=== PATIENT | female | born 1955 | race Caucasian/White ===

== ENCOUNTER 2018-03-19 19:14 | Inpatient (IN) ==
[2018-03-19 20:06] LABS: Basophils % 0.4 % (0.0-0.8); Eosinophils # 0.2 10*3/uL (0.0-0.87); Eosinophils % 2.2 % (0.00-10.9); Hemoglobin 13.5 GM/DL (12.0-16.0); Immature Granulocytes % 0.6 %; Immature Granulocytes Absolute 0.06 #; Lymphocytes # 3.1 10*3/uL (1.4-4.0); Lymphocytes % 32.1 % (21.3-54.2); Mean Corpuscular HGB Conc 32.1 GM/DL (32-36); Mean Corpuscular Hemoglobin 28 PG (27-34); Mean Corpuscular Volume 88.1 FL (87-102); Mean Platelet Volume 8.9 FL (9.6-12.0); Monocytes # 0.7 10*3/uL (0.11-0.8); Monocytes % 6.6 % (1.7-12.7); Neutrophils # 5.7 10*3/uL (1.4-7.4); Neutrophils % 58.1 % (38.7-73.9); Platelet Count 399 T/CUMM (130-400); Red Blood Count 4.77 MC/CUMM (3.8-5.5); Red Cell Distribution Width 16.6 % (9.3-17.3); White Blood Count 9.8 T/CUMM (4-12)
[2018-03-19] MEDS ORDERED: ALBUTEROL/IPRATROPIUM 3 ML NEB RESP TX STA (20:26)
[2018-03-19] MEDS ORDERED: PANTOPRAZOLE 40 MG VIAL IV STA (20:26)
[2018-03-19] MEDS ORDERED: methylPREDNISolone SOD SUC 125 MG/2 ML VIAL IV STA (20:26)
[2018-03-19 20:30] LABS: Alanine Aminotransferase 20 U/L (13-56); Albumin 3.8 G/DL (3.4-5.0); Alkaline Phosphatase 90 U/L (45-117); Aspartate Amino Transferase 11 U/L (0-37); Bilirubin,Total < 0.39 MG/DL (0.2-1.0); Blood Urea Nitrogen 14 MG/DL (7-18); Calcium 8.1 MG/DL (8.5-10.1); Glucose 97 MG/DL (74-106); Osmolality,Calculated 290.6 MOS/KG (273-304); Potassium 4.1 MMOL/L (3.5-5.1); Sodium 146 MMOL/L (136-145); Total Protein 7.4 G/DL (6.4-8.3)
[2018-03-19] MEDS ORDERED: METOCLOPRAMIDE 10 MG/2 ML VIAL IV STA (20:55)
[2018-03-19] MEDS ORDERED: FUROSEMIDE 40 MG/4 ML VIAL IV STA (20:55)
[2018-03-19] MEDS ORDERED: diphenhydrAMINE 50 MG/1 ML VIAL IV STA (20:55)
[2018-03-19] MEDS ORDERED: ACETAMINOPHEN 325 MG TABLET PO PRN (21:01)
[2018-03-19] MEDS ORDERED: ALBUTEROL/IPRATROPIUM 3 ML NEB RESP TX PRN (21:03)
[2018-03-19] MEDS ORDERED: ALBUTEROL 2.5 MG/3 ML NEB RESP TX PRN (21:03)
[2018-03-19] MEDS ORDERED: SODIUM CHLORIDE 0.45% 1,000 ML IV SCH (21:30)
[2018-03-19] MEDS ORDERED: KETOROLAC 30 MG/1 ML VIAL IV STA (21:34)
[2018-03-19] MEDS ORDERED: MORPHINE 4 MG/1 ML VIAL IV STA (22:33)
[2018-03-20] MEDS: SODIUM CHLORIDE 0.45% 1,000 ML IV SCH ×2 (00:04→11:13)
[2018-03-20] MEDS: ZALEPLON 5 MG CAPSULE PO PRN (01:25)
[2018-03-20 05:16] LABS: Alanine Aminotransferase 20 U/L (13-56); Albumin 3.4 G/DL (3.4-5.0); Alkaline Phosphatase 86 U/L (45-117); Aspartate Amino Transferase 9 U/L (0-37); Bilirubin,Total < 0.39 MG/DL (0.2-1.0); Blood Urea Nitrogen 15 MG/DL (7-18); Calcium 8.2 MG/DL (8.5-10.1); Cholesterol 147 MG/DL (50-200); Glucose 247 MG/DL (74-106); HDL Cholesterol 52 MG/DL (40-60); Osmolality,Calculated 281.8 MOS/KG (273-304); Potassium 3.7 MMOL/L (3.5-5.1); Risk Ratio 2.83; Sodium 137 MMOL/L (136-145); Total Protein 6.9 G/DL (6.4-8.3); Triglycerides 119 MG/DL (2-150); VLDL CHOLESTEROL 23.8 MG/DL
[2018-03-20] MEDS: LEVOTHYROXINE 50 MCG TABLET PO SCH (05:25)
[2018-03-20] MEDS: IPRATROPIUM 500 MCG/2.5 ML NEB RESP TX SCH ×4 (07:14→18:59)
[2018-03-20] MEDS: ASPIRIN EC 81 MG TABLET PO SCH (08:57)
[2018-03-20] MEDS: ENOXAPARIN 40 MG/0.4 ML SYRINGE SUBCUT SCH (08:57)
[2018-03-20] MEDS: FUROSEMIDE 40 MG TABLET PO SCH (08:57)
[2018-03-20] MEDS: PANTOPRAZOLE 40 MG TABLET PO SCH (08:57)
[2018-03-20] MEDS: CLOPIDOGREL 75 MG TABLET PO SCH (08:57)
[2018-03-20] MEDS ORDERED: LISINOPRIL 10 MG TABLET PO SCH (09:00)
[2018-03-20] MEDS ORDERED: LIRAGLUTIDE 1.2 MG SUBCUT SCH (09:00)
[2018-03-20] MEDS ORDERED: PANTOPRAZOLE 40 MG TABLET PO SCH (09:00)
[2018-03-20] MEDS ORDERED: MORPHINE 4 MG/1 ML VIAL ONE (10:02)
[2018-03-20] MEDS: MORPHINE 4 MG/1 ML VIAL IV PRN ×3 (10:07→21:03)
[2018-03-20] MEDS ORDERED: KETOROLAC 15 MG/1 ML VIAL IV ONE (10:29)
[2018-03-20] MEDS ORDERED: ALUM/MAG/SIMETH/LIDO VISC 1:1 30 ML BOTTLE PO ONE (10:29)
[2018-03-20] MEDS: NICOTINE 21 MG/24 HR PATCH TRANSDERM SCH (15:48)
[2018-03-20] MEDS ORDERED: IPRATROPIUM 500 MCG/2.5 ML NEB RESP TX PRN (18:26)
[2018-03-20] MEDS: DIAZEPAM 2 MG TABLET PO SCH (19:46)
[2018-03-20] MEDS: MONTELUKAST 10 MG TABLET PO SCH (20:54)
[2018-03-20] MEDS: LEVOFLOXACIN INJ 500 MG in PREMIX 1 EACH IV SCH (20:54)
[2018-03-20] MEDS: INDOMETHACIN 25 MG CAPSULE PO SCH (20:54)
[2018-03-20] MEDS: BENZONATATE 100 MG CAPSULE PO SCH (20:54)
[2018-03-20] MEDS: DULoxetine 30 MG CAPSULE PO SCH (20:55)
[2018-03-20] MEDS ORDERED: MONTELUKAST 10 MG TABLET PO SCH (21:00)
[2018-03-20] MEDS: ONDANSETRON 4 MG/2 ML VIAL IV PRN (21:03)
[2018-03-21] MEDS: MORPHINE 4 MG/1 ML VIAL IV PRN ×5 (00:50→21:43)
[2018-03-21] MEDS: LEVOTHYROXINE 50 MCG TABLET PO SCH (05:26)
[2018-03-21] MEDS: IPRATROPIUM 500 MCG/2.5 ML NEB RESP TX SCH ×4 (07:57→19:48)
[2018-03-21] MEDS: ONDANSETRON 4 MG/2 ML VIAL IV PRN ×3 (09:43→22:23)
[2018-03-21] MEDS ORDERED: CLINDAMYCIN INJ 900 MG in PREMIX 1 EACH IV ONE (10:00)
[2018-03-21] MEDS ORDERED: BUPIVACAINE MPF 0.25% 30 ML VIAL ONE (10:07)
[2018-03-21] MEDS ORDERED: LIDOCAINE 1%/EPI INJ 20 ML VIAL ONE (10:07)
[2018-03-21] MEDS ORDERED: LACTATED RINGERS 1,000 ML IV SCH (10:30)
[2018-03-21] MEDS ORDERED: TISSUE ADHESIVE 1 EACH APPLICATOR TOP ONE (11:00)
[2018-03-21] MEDS ORDERED: PROPOFOL 200 MG/20 ML VIAL IV ONE (11:22)
[2018-03-21] MEDS ORDERED: MIDAZOLAM 2 MG/2 ML VIAL ONE (11:22)
[2018-03-21] MEDS ORDERED: fentaNYL 100 MCG/2 ML VIAL ONE (11:22)
[2018-03-21] MEDS ORDERED: ONDANSETRON 4 MG/2 ML VIAL ONE ×2 (11:22→11:32)
[2018-03-21] MEDS ORDERED: PHENYLEPHRINE 1 MG/10 ML SYRINGE IV ONE (11:23)
[2018-03-21] MEDS ORDERED: ONDANSETRON 4 MG/2 ML VIAL IV PRN (11:29)
[2018-03-21] MEDS ORDERED: HYDROmorphone 2 MG/1 ML VIAL ONE (11:31)
[2018-03-21] MEDS: HYDROmorphone 2 MG/1 ML VIAL IV PRN ×2 (11:34→11:47)
[2018-03-21] MEDS ORDERED: GLUCAGON 1 MG VIAL IM PRN (12:45)
[2018-03-21] MEDS ORDERED: DEXTROSE 50% 25 GM/50 ML VIAL IV PRN (12:45)
[2018-03-21] MEDS: NICOTINE 21 MG/24 HR PATCH TRANSDERM SCH (14:20)
[2018-03-21] MEDS: FUROSEMIDE 40 MG TABLET PO SCH (14:22)
[2018-03-21] MEDS: PANTOPRAZOLE 40 MG TABLET PO SCH ×2 (14:22→21:33)
[2018-03-21] MEDS: ENOXAPARIN 40 MG/0.4 ML SYRINGE SUBCUT SCH (14:22)
[2018-03-21] MEDS: CLOPIDOGREL 75 MG TABLET PO SCH (14:22)
[2018-03-21] MEDS: ASPIRIN EC 81 MG TABLET PO SCH (14:22)
[2018-03-21] MEDS: CHOLECALCIFEROL 1,000 UNIT TABLET PO SCH (14:22)
[2018-03-21] MEDS: BENZONATATE 100 MG CAPSULE PO SCH ×3 (14:23→21:33)
[2018-03-21] MEDS: MONTELUKAST 10 MG TABLET PO SCH ×2 (14:23→21:33)
[2018-03-21] MEDS: DIAZEPAM 2 MG TABLET PO SCH (19:03)
[2018-03-21] MEDS: DULoxetine 30 MG CAPSULE PO SCH (21:33)
[2018-03-21] MEDS: INDOMETHACIN 25 MG CAPSULE PO SCH (21:33)
[2018-03-21] MEDS: ZALEPLON 5 MG CAPSULE PO PRN (21:33)
[2018-03-21] MEDS: LEVOFLOXACIN INJ 500 MG in PREMIX 1 EACH IV SCH (21:34)
[2018-03-22] MEDS: MORPHINE 4 MG/1 ML VIAL IV PRN (05:17)
[2018-03-22] MEDS: ONDANSETRON 4 MG/2 ML VIAL IV PRN ×3 (05:18→21:30)
[2018-03-22] MEDS: LEVOTHYROXINE 50 MCG TABLET PO SCH (05:20)
[2018-03-22] MEDS: IPRATROPIUM 500 MCG/2.5 ML NEB RESP TX SCH ×4 (07:39→19:16)
[2018-03-22] MEDS: NICOTINE 21 MG/24 HR PATCH TRANSDERM SCH (10:00)
[2018-03-22] MEDS ORDERED: DEXTROSE 50% 25 GM/50 ML VIAL IV PRN (10:16)
[2018-03-22] MEDS ORDERED: GLUCAGON 1 MG VIAL IM PRN (10:16)
[2018-03-22] MEDS: BENZONATATE 100 MG CAPSULE PO SCH ×3 (10:27→21:30)
[2018-03-22] MEDS: MONTELUKAST 10 MG TABLET PO SCH ×2 (10:27→21:30)
[2018-03-22] MEDS: PANTOPRAZOLE 40 MG TABLET PO SCH ×2 (10:27→21:30)
[2018-03-22] MEDS: CHOLECALCIFEROL 1,000 UNIT TABLET PO SCH (10:28)
[2018-03-22] MEDS: FUROSEMIDE 40 MG TABLET PO SCH (10:28)
[2018-03-22] MEDS ORDERED: HydrOXYzine PAMOATE 25 MG CAPSULE PO PRN (12:23)
[2018-03-22] MEDS: DIAZEPAM 2 MG TABLET PO SCH (18:38)
[2018-03-22] MEDS: INDOMETHACIN 25 MG CAPSULE PO SCH (21:30)
[2018-03-22] MEDS: ZALEPLON 5 MG CAPSULE PO PRN (21:30)
[2018-03-22] MEDS: DULoxetine 30 MG CAPSULE PO SCH (21:30)
[2018-03-22] MEDS: LEVOFLOXACIN INJ 500 MG in PREMIX 1 EACH IV SCH (21:34)
[2018-03-23] MEDS: ONDANSETRON 4 MG/2 ML VIAL IV PRN ×3 (01:20→21:35)
[2018-03-23 03:34] LABS: Basophils # 0.1 10*3/uL (0.0-0.2); Basophils % 0.5 % (0.0-0.8); Eosinophils # 0.2 10*3/uL (0.0-0.87); Eosinophils % 1.7 % (0.00-10.9); Hematocrit 39.4 VOL% (35.7-47.0); Hemoglobin 12.9 GM/DL (12.0-16.0); Immature Granulocytes % 0.5 %; Immature Granulocytes Absolute 0.05 #; Lymphocytes # 4.2 10*3/uL (1.4-4.0); Lymphocytes % 40.2 % (21.3-54.2); Mean Corpuscular HGB Conc 32.7 GM/DL (32-36); Mean Corpuscular Hemoglobin 28 PG (27-34); Mean Platelet Volume 9.1 FL (9.6-12.0); Monocytes # 0.7 10*3/uL (0.11-0.8); Monocytes % 6.4 % (1.7-12.7); Neutrophils # 5.3 10*3/uL (1.4-7.4); Neutrophils % 50.7 % (38.7-73.9); Platelet Count 369 T/CUMM (130-400); Red Blood Count 4.58 MC/CUMM (3.8-5.5); Red Cell Distribution Width 15.9 % (9.3-17.3); White Blood Count 10.5 T/CUMM (4-12)
[2018-03-23 03:48] LABS: Calcium 8.3 MG/DL (8.5-10.1); Osmolality,Calculated 281.4 MOS/KG (273-304); Potassium 3.9 MMOL/L (3.5-5.1)
[2018-03-23] MEDS: LEVOTHYROXINE 50 MCG TABLET PO SCH (06:40)
[2018-03-23] MEDS: IPRATROPIUM 500 MCG/2.5 ML NEB RESP TX SCH ×4 (07:24→19:14)
[2018-03-23] MEDS ORDERED: PROPOFOL 200 MG/20 ML VIAL IV ONE (10:00)
[2018-03-23] MEDS ORDERED: LIDOCAINE 2% 5 ML VIAL ONE (10:00)
[2018-03-23] MEDS: CHOLECALCIFEROL 1,000 UNIT TABLET PO SCH (10:09)
[2018-03-23] MEDS: NICOTINE 21 MG/24 HR PATCH TRANSDERM SCH (10:09)
[2018-03-23] MEDS: FUROSEMIDE 40 MG TABLET PO SCH (10:10)
[2018-03-23] MEDS: PANTOPRAZOLE 40 MG TABLET PO SCH ×2 (10:10→21:34)
[2018-03-23] MEDS: MONTELUKAST 10 MG TABLET PO SCH ×2 (10:10→21:34)
[2018-03-23] MEDS: BENZONATATE 100 MG CAPSULE PO SCH ×3 (10:10→21:34)
[2018-03-23] MEDS: LEVOFLOXACIN 500 MG TABLET PO SCH (11:33)
[2018-03-23] MEDS: DIAZEPAM 2 MG TABLET PO SCH (18:30)
[2018-03-23] MEDS: ZALEPLON 5 MG CAPSULE PO PRN (21:34)
[2018-03-23] MEDS: DULoxetine 30 MG CAPSULE PO SCH (21:34)
[2018-03-24] MEDS: LEVOTHYROXINE 50 MCG TABLET PO SCH (05:52)
[2018-03-24] MEDS: IPRATROPIUM 500 MCG/2.5 ML NEB RESP TX SCH (07:44)
[2018-03-24 07:53] VITALS: BP 111/53
[2018-03-24] MEDS: CHOLECALCIFEROL 1,000 UNIT TABLET PO SCH (09:21)
[2018-03-24] MEDS: BENZONATATE 100 MG CAPSULE PO SCH (09:21)
[2018-03-24] MEDS: MONTELUKAST 10 MG TABLET PO SCH (09:21)
[2018-03-24] MEDS: CLOPIDOGREL 75 MG TABLET PO SCH (09:22)
[2018-03-24] MEDS: ASPIRIN EC 81 MG TABLET PO SCH (09:22)
[2018-03-24] MEDS: LEVOFLOXACIN 500 MG TABLET PO SCH (09:22)
[2018-03-24] MEDS: PANTOPRAZOLE 40 MG TABLET PO SCH (09:22)
[2018-03-24] MEDS: ENOXAPARIN 40 MG/0.4 ML SYRINGE SUBCUT SCH (09:22)
[2018-03-24] MEDS: ONDANSETRON 4 MG/2 ML VIAL IV PRN (09:22)
[2018-03-24] MEDS: NICOTINE 21 MG/24 HR PATCH TRANSDERM SCH (09:24)
[2018-03-24] MEDS: FUROSEMIDE 40 MG TABLET PO SCH (09:26)
== END 2018-03-24 11:05 | disposition home or self-care (01) | DRG 178 ==
LOC: N.EDINP 19:14 → N.ED 19:14 → N.TELEN 21:47
PROVIDERS: ADMIT Hospitalist; ATTEND Hospitalist